=== PATIENT | female | born 1960 ===

== ENCOUNTER 2018-03-18 02:31 | Emergency (ER) | payer OTHER ==
[2018-03-18 02:47] VITALS: BP 125/65; BMI 24.0
--- NOTE | 2018-03-18 03:35 | PDOC ---
History of Present Illness - General Chief Complaint: Hematuria Stated Complaint: BLOOD IN URINE Time Seen by Provider: 03/18/18 03:35 - History of Present Illness Initial Comments: 57yo F with PMH of DM, HTN, cardiac stents, ICD presenting with urinary symptoms x 2 days. Patients daughter is at the bedside providing collateral history. Patient reports dysuria and frequency. When she urinates, only a small amount comes out and she has the sensation that she is not able to empty all the way. Denies history of UTIs or kidney problems. Patient was intending on seeing her primary care doctor on Tuesday, however came to the ED when she noticed three drops of blood in the toilet after urinating. No fevers, chills, chest pain, abdominal pain, or shortness of breath Past History - Past Medical History Allergies/Adverse Reactions: Allergies Allergy/AdvReac Type Severity Reaction Status Date / Time Iodinated Contrast- Oral and Allergy Verified 03/18/18 02:45 IV Dye Home Medications: Ambulatory Orders Cephalexin [Keflex] 500 mg PO BID #14 capsule 03/18/18 Phenazopyridine HCl [Pyridium] 200 mg PO BID #10 tablet 03/18/18 - Suicide/Smoking/Psychosocial Hx Smoking History: Never smoked Have you smoked in the past 12 months: No Information on smoking cessation initiated: No Hx Alcohol Use: No Drug/Substance Use Hx: No Review of Systems - Review of Systems Comments:: Constitutional: no fever, no chills HEENT: no throat pain, no dysphagia Cardiovascular: no chest pain, no palpitations Respiratory: no cough, no shortness of breath Gastrointestinal: no abdominal pain, no nausea, no vomiting Genitourinary: +dysuria, +frequency Musculoskeletal: no myalgia, no arthralgia Skin: no rash, no itching Neurologic: no headache, no dizziness *Physical Exam - Vital Signs Last Vital Signs Temp Pulse Resp BP Pulse Ox 98.5 F 79 18 125/65 99 03/18/18 02:45 03/18/18 02:45 03/18/18 02:45 03/18/18 02:45 03/18/18 02:45 - Physical Exam Comments: General: Awake, alert, and fully oriented, in no acute distress Head: No signs of trauma Eyes: EOMI, sclera anicteric ENT: Moist mucus membranes Neck: Normal ROM, supple Lungs: Lungs clear, Normal breath sounds Cardio: Regular rhythm, S1 and S2 present Abdomen: Tender to palpation in suprapubic region; Soft, nondistended. No guarding, no rebound, no masses; No CVA tenderness Extremities: Normal range of motion, Distal pulses present SKIN: Warm, Dry, normal turgor Neurologic: Cranial nerves II through XII grossly intact. Normal speech ED Treatment Course - LABORATORY CBC & Chemistry Diagram: 03/18/18 04:23 03/18/18 04:23 Medical Decision Making - Medical Decision Making 57yo F with PMH of DM, HTN, cardiac stents, ICD presenting with urinary symptoms x 2 days. -Presentation consistent with urinary tract infection; no CVA tenderness so low suspicion for pyelonephritis -Labs -1g Ofirmev 03/18/18 05:01 -UA positive for UTI -1g Rocephin ordered 03/18/18 05:19 No leukocytosis or anemia 03/18/18 05:32 Pyridium ordered for dysuria 03/18/18 05:44 *DC/Admit/Observation/Transfer Diagnosis at time of Disposition: Urinary tract infection - Discharge Dispostion Disposition: HOME Condition at time of disposition: Improved - Prescriptions Prescriptions: Cephalexin [Keflex] 500 mg PO BID #14 capsule Phenazopyridine HCl [Pyridium] 200 mg PO BID #10 tablet - Referrals - Patient Instructions Printed Discharge Instructions: DI for Urinary Tract Infection (UTI) Additional Instructions: You came into the ED for urinary symptoms. Lab work shows that you have a urinary tract infection. Prescriptions sent to your pharmacy. The pyridium may make your urine turn orange-- this is normal. Follow-up with you primary care physician in 5-7 days to discuss this ED visit and to further evaluate your urinary symptoms. Your care is not complete until you do so. Call and make an appointment. You can use [id number] motrin and tylenol for your pain. Take as instructed on the medication bottle. Seek medical attention if any of the following occur: you develop high fevers, chills, persistent vomiting, back pain, stop urinating, or any new or concerning symptoms. If you think you have an emergency, call for medical help right away. - Post Discharge Activity
--- NOTE | 2018-03-18 03:39 | PDOC ---
Attending Attestation - Resident Resident Name: Reema Darnell - ED Attending Attestation I have performed the following: I have examined & evaluated the patient, The case was reviewed & discussed with the resident, I agree w/resident's findings & plan - HPI HPI: 03/18/18 03:53 DM, HTN, cardiac stents. Comes with dysuria x 2 days and decreased appetite x 3 days. 03/18/18 05:40 - Physicial Exam PE: 03/18/18 04:20 Agree with resident exam - Medical Decision Making 03/18/18 05:43 Pt has a UTI; DM is well controlled. Sugar slightly elevated today because she has a UTI. SHe will be treated with rocephin IVPB here x 1 and home with keflex. She will go home with pyridium.
[2018-03-18] MEDS ORDERED: ACETAMINOPHEN 1000 MG/100 ML VIAL (NON FORMULARY) IVPB ONE (03:47)
[2018-03-18] MEDS ORDERED: ACETAMINOPHEN INJECTION 100 ML IVPB ONE (04:25)
[2018-03-18 04:34] LABS: URINE APPEARANCE SLCLOUDY; URINE BILIRUBIN NEGATIVE (<2.0 mg/dL); URINE COLOR YELLOW; URINE GLUCOSE (UA) 3+ (NEGATIVE); URINE KETONE NEGATIVE (NEGATIVE); URINE LEUK ESTERASE 2+ (NEGATIVE); URINE NITRITE NEGATIVE (NEGATIVE); URINE PROTEIN NEGATIVE (NEGATIVE); URINE UROBILINOGEN NEGATIVE mg/dL (0.2-1.0)
[2018-03-18 04:48] LABS: EPI CELLS RARE /HPF (FEW); URINE BACTERIA MODERATE /hpf (NONE SEEN)
[2018-03-18 05:01] LABS: BASO % 0.8 % (0-2.0); HEMATOCRIT 35.1 % (32.4-45.2); HEMOGLOBIN 10.9 GM/dL (10.7-15.3); LYMPH % 33.1 % (8-40); MCH 24.7 pg (25.7-33.7); MEAN CELL VOLUME 79.6 fl (80-96); MEAN PLT VOLUME 8.3 fl (7.5-11.1); MONO % 6.3 % (3.8-10.2); NEUT % 48.8 % (42.8-82.8); PLATELET COUNT 294 K/MM3 (134-434); RBC 4.41 M/mm3 (3.60-5.2); WHITE BLOOD COUNT 7.9 K/mm3 (4.0-10.0)
[2018-03-18] MEDS ORDERED: CEFTRIAXONE 1,000 MG in DEXTROSE 5%-WATER - 50 ML IVPB ONE (05:04)
[2018-03-18 05:17] LABS: ALBUMIN 3.6 g/dl (3.4-5.0); ALK PHOS 109 U/L (45-117); ANION GAP 7 MMOL/L (8-16); BILIRUBIN,TOTAL 0.2 mg/dL (0.2-1); BLOOD UREA NITROGEN 15 mg/dL (7-18); CALCIUM 9.2 mg/dL (8.5-10.1); CHLORIDE 105 mmol/L (98-107); CO2 26 mmol/L (22-28); GLUCOSE,RANDOM 217 mg/dL (74-106); POTASSIUM 4.7 mmol/L (3.5-5.1); SGOT/AST 24 U/L (15-37); SGPT/ALT 20 U/L (13-61); SODIUM 138 mmol/L (136-145); TOT PROT 7.8 g/dl (6.4-8.2)
[2018-03-18 05:37] VITALS: PULSE 80; TEMP 98.3
[2018-03-18] MEDS ORDERED: CEFTRIAXONE 1 GM/50 ML BAG ONE (05:38)
[2018-03-18] MEDS ORDERED: PHENAZOPYRIDINE HCL 100 MG TABLET (FP) PO ONE (05:46)
[2018-03-18] MEDS ORDERED: PHENAZOPYRIDINE HCL 100 MG TABLET (FP) ONE (05:47)
== END 2018-03-18 05:51 | disposition home or self-care (01) ==
LOC: JER 02:31
PROC: 3E03329 Introduction of Other Anti-infective into Peripheral Vein, Percutaneous Approach (ICD-10-PCS; principal; 2018-03-18)
PROC: 3E033NZ Introduction of Analgesics, Hypnotics, Sedatives into Peripheral Vein, Percutaneous Approach (ICD-10-PCS; 2018-03-18)
DX: N39.0 Urinary tract infection, site not specified (principal); I25.10 Atherosclerotic heart disease of native coronary artery without angina pectoris; I10 Essential (primary) hypertension; Z95.5 Presence of coronary angioplasty implant and graft; E11.9 Type 2 diabetes mellitus without complications; Z95.810 Presence of automatic (implantable) cardiac defibrillator
CPT/HCPCS: 36415; 80053; 81003; 81015; 85025; 87086; 87186; 96365; 96375; 99281-25; J0131

== ENCOUNTER 2018-03-25 01:10 | Emergency (ER) | payer OTHER ==
--- NOTE | 2018-03-25 01:31 | PDOC ---
History of Present Illness - History of Present Illness Initial Comments: This patient is a 57 year old Irish-speaking female with PMH of DM, HTN, cardiac stents, ICD, who was recently discharged on Keflex and Pyridium for UTI 7 days ago, and today presents with lip edema s/p allergic reaction. Patients family member states that she finished the Pyridium and has one more dose left of the Keflex. She takes Metformin and insulin for her diabetes and Enalapril for the HTN. Patients family member states that they noticed some lip swelling last week but after taking Benadryl it resolved. Today they gave her Benadryl at 9:00 but the swelling did not resolve. Denies tongue or throat swelling, sob, or trouble breathing. <Autumn Lu - Last Filed: 03/25/18 02:18> <Sosa Elder - Last Filed: 03/26/18 23:10> - General Chief Complaint: Allergic Reaction Stated Complaint: ALLERGIC REACTION,VOMITING Past History <Autumn Lu - Last Filed: 03/25/18 02:18> - Suicide/Smoking/Psychosocial Hx Smoking History: Never smoked Have you smoked in the past 12 months: No Hx Alcohol Use: No Drug/Substance Use Hx: No <Sosa Elder - Last Filed: 03/26/18 23:10> - Past Medical History Allergies/Adverse Reactions: Allergies Allergy/AdvReac Type Severity Reaction Status Date / Time Iodinated Contrast- Oral and Allergy Verified 03/25/18 01:34 IV Dye Home Medications: Ambulatory Orders Enalapril Maleate 5 mg PO DAILY 03/25/18 Isosorbide Dinitrate [Isordil -] 0 mg PO DAILY 03/25/18 Metformin HCl [Glucophage] 1,000 mg PO DAILY 03/25/18 Valsartan [Diovan] 40 mg PO DAILY #30 tablet 03/25/18 Review of Systems - Review of Systems Comments:: GENERAL/CONSTITUTIONAL: No fever or chills. No weakness. HEAD, EYES, EARS, NOSE AND THROAT: +lip swelling. No change in vision. No ear pain or discharge. No sore throat. CARDIOVASCULAR: No chest pain or shortness of breath. RESPIRATORY: No cough, wheezing, or hemoptysis. GASTROINTESTINAL: No nausea, vomiting, diarrhea or constipation. GENITOURINARY: No dysuria, frequency, or change in urination. MUSCULOSKELETAL: No joint or muscle pain. No neck or back pain. SKIN: No rash NEUROLOGIC: No headache, vertigo, loss of consciousness, or change in strength/ sensation. ENDOCRINE: No increased thirst. No abnormal weight change. HEMATOLOGIC/LYMPHATIC: No anemia, easy bleeding, or history of blood clots. ALLERGIC/IMMUNOLOGIC: No hives or skin allergy. <Autumn Lu - Last Filed: 03/25/18 02:18> *Physical Exam - Vital Signs Last Vital Signs Temp Pulse Resp BP Pulse Ox 98.6 F 79 18 147/63 97 03/25/18 01:10 03/25/18 01:10 03/25/18 01:10 03/25/18 01:10 03/25/18 01:10 - Physical Exam Comments: GENERAL: Awake, alert, and fully oriented, in no acute distress HEAD: No signs of trauma EYES: PERRLA, EOMI, sclera anicteric, conjunctiva clear ENT: Auricles normal inspection, hearing grossly normal, nares patent, oropharynx clear without exudates. Moist mucosa NECK: Normal ROM, supple, no lymphadenopathy, JVD, or masses LUNGS: Breath sounds equal, clear to auscultation bilaterally. No wheezes, and no crackles HEART: Regular rate and rhythm, normal S1 and S2, no murmurs, rubs or gallops ABDOMEN: Soft, nontender, normoactive bowel sounds. No guarding, no rebound. No masses EXTREMITIES: Normal range of motion, no edema. No clubbing or cyanosis. No cords, erythema, or tenderness NEUROLOGICAL: Cranial nerves II through XII grossly intact. Normal speech, normal gait SKIN: B/l Lips significantly edematous. Warm, Dry, normal turgor, no rashes or lesions noted. <Autumn Lu - Last Filed: 03/25/18 02:18> ED Treatment Course - LABORATORY CBC & Chemistry Diagram: 03/25/18 01:55 03/25/18 01:55 - ADDITIONAL ORDERS Additional order review: 03/25/18 01:55 RBC 4.20 MCV 78.9 L MCHC 31.5 L RDW 14.7 MPV 7.9 Neutrophils % 50.4 Lymphocytes % 29.9 Monocytes % 6.9 Eosinophils % 12.1 H Basophils % 0.7 - Medications Given in the ED: ED Medications Discontinued Medications Generic Name Dose Route Start Last Admin Trade Name Juan A PRN Reason Stop Dose Admin Dexamethasone 4 mg 03/25/18 02:02 03/25/18 02:16 Decadron Liquid - PO 03/25/18 02:03 4 mg ONCE ONE Administration Ranitidine HCl 300 mg 03/25/18 02:02 03/25/18 02:16 Zantac - PO 03/25/18 02:03 300 mg ONCE ONE Administration <Autumn Lu - Last Filed: 03/25/18 02:18> - LABORATORY CBC & Chemistry Diagram: 03/25/18 01:55 03/25/18 01:55 <Sosa Elder - Last Filed: 03/26/18 23:10> Medical Decision Making - Medical Decision Making 03/26/18 23:10 Pt's brandi inhibitor will be ceased and pt will be started on diovan, and asked to follow with her PMD <Sosa Elder - Last Filed: 03/26/18 23:10> *DC/Admit/Observation/Transfer - Attestations Scribe Attestion: 03/25/18 02:20 Documentation prepared by Autumn Lu, acting as bacteriologist medical for Sosa Elder MD. <Autumn Lu - Last Filed: 03/25/18 02:18> - Discharge Dispostion Decision to Admit order: No <Sosa Elder - Last Filed: 03/26/18 23:10> Diagnosis at time of Disposition: Angioedema - Discharge Dispostion Disposition: HOME Condition at time of disposition: Improved - Prescriptions Prescriptions: Valsartan [Diovan] 40 mg PO DAILY #30 tablet - Patient Instructions Printed Discharge Instructions: DI for Angioedema
[2018-03-25 01:34] VITALS: BP 147/63; PULSE 79; TEMP 98.6; BMI 24.7
[2018-03-25] MEDS ORDERED: DEXAMETHASONE LIQUID 0.5 MG/5 ML 240 ML BULK BOTTLE PO ONE (02:02)
[2018-03-25] MEDS ORDERED: RANITIDINE HCL 150 MG TABLET (FP) PO ONE (02:02)
[2018-03-25 02:06] LABS: BASO % 0.7 % (0-2.0); EOS % 12.1 % (0-4.5); HEMATOCRIT 33.1 % (32.4-45.2); HEMOGLOBIN 10.4 GM/dL (10.7-15.3); LYMPH % 29.9 % (8-40); MCH 24.8 pg (25.7-33.7); MCHC 31.5 g/dl (32.0-36.0); MEAN CELL VOLUME 78.9 fl (80-96); MEAN PLT VOLUME 7.9 fl (7.5-11.1); MONO % 6.9 % (3.8-10.2); NEUT % 50.4 % (42.8-82.8); PLATELET COUNT 327 K/MM3 (134-434); RDW 14.7 % (11.6-15.6); WHITE BLOOD COUNT 5.7 K/mm3 (4.0-10.0)
[2018-03-25] MEDS ORDERED: RANITIDINE HCL 150 MG TABLET (FP) ONE (02:09)
[2018-03-25] MEDS ORDERED: DEXAMETHASONE SOD PHOSPHATE 4 MG/1 ML VIAL ONE (02:09)
[2018-03-25 02:27] LABS: URINE APPEARANCE CLEAR; URINE BILIRUBIN NEGATIVE (<2.0 mg/dL); URINE COLOR YELLOW; URINE GLUCOSE (UA) NEGATIVE (NEGATIVE); URINE KETONE NEGATIVE (NEGATIVE); URINE LEUK ESTERASE 1+ (NEGATIVE); URINE NITRITE NEGATIVE (NEGATIVE); URINE PROTEIN 1+ (NEGATIVE); URINE UROBILINOGEN NEGATIVE mg/dL (0.2-1.0)
[2018-03-25 02:33] LABS: EPI CELLS RARE /HPF (FEW); URINE HYALINE CAST 1 /lpf; URINE MUCUS RARE
[2018-03-25 02:36] LABS: ALBUMIN 3.4 g/dl (3.4-5.0); ALK PHOS 87 U/L (45-117); ANION GAP 8 MMOL/L (8-16); BILIRUBIN,TOTAL 0.2 mg/dL (0.2-1); BLOOD UREA NITROGEN 25 mg/dL (7-18); CALCIUM 9.3 mg/dL (8.5-10.1); CHLORIDE 105 mmol/L (98-107); CO2 26 mmol/L (21-32); GLUCOSE,RANDOM 117 mg/dL (74-106); POTASSIUM 4.5 mmol/L (3.5-5.1); SGOT/AST 27 U/L (15-37); SGPT/ALT 20 U/L (13-61); SODIUM 140 mmol/L (136-145); TOT PROT 7.4 g/dl (6.4-8.2)
[2018-03-25 03:17] LABS: ACETONE SERUM NEGATIVE (NEGATIVE)
== END 2018-03-25 03:01 | disposition home or self-care (01) ==
LOC: JER 01:10
DX: T78.3XXA Angioneurotic edema, initial encounter (principal); E11.9 Type 2 diabetes mellitus without complications; Z79.84 Long term (current) use of oral hypoglycemic drugs; I25.10 Atherosclerotic heart disease of native coronary artery without angina pectoris; I10 Essential (primary) hypertension; Z95.5 Presence of coronary angioplasty implant and graft; Z95.810 Presence of automatic (implantable) cardiac defibrillator; Z87.440 Personal history of urinary (tract) infections; Z91.041 Radiographic dye allergy status
CPT/HCPCS: 36415; 80053; 81003; 81015; 82009; 82550; 84484; 85025; 87086; 99283-25

== ENCOUNTER → 2021-01-05 | Emergency (ER) | payer OTHER ==
[~2021-01-05] MED LIST: ACETAMINOPHEN 325 MG TABLET (FP) ONE; ACETAMINOPHEN 500 MG TABLET (FP) PO ONE
[2021-01-05 16:32] VITALS: BP 164/62; PULSE 73; TEMP 99.1; BMI 25.5
[2021-01-05 19:59] LABS: SARS COV-2 MOLECULAR Presumptive Positive (Negative)
[2021-01-06 12:07] LABS: SARS-CoV-2 NAA Detected (Not Detected)
== END | disposition home or self-care (01) ==
LOC: JER 16:15
DX: B34.9 Viral infection, unspecified (principal)
CPT/HCPCS: 87880; 99283-25; C9803; U0003; U0005

== ENCOUNTER 2021-01-07 18:33 | Emergency (ER) | payer OTHER ==
[2021-01-07 19:32] VITALS: BP 127/61; PULSE 81; TEMP 98.2; BMI 22.8
== END 2021-01-07 21:03 | disposition home or self-care (01) ==
LOC: JER 18:33
DX: U07.1 COVID-19 (principal)
CPT/HCPCS: 99281-25